=== PATIENT | female | born 1965 | race Caucasian/White ===

== ENCOUNTER 2017-06-17 07:36 | Day surgery (SDC) | payer BC ==
[~2017-06-17 07:36] MED LIST: CEFAZOLIN 1 GM/D5W RTU 1 GM/50 ML RTUPB IV PRN
[2017-06-17] MEDS ORDERED: POLYMYXIN B SULFATE INJ 500000 UNIT VIAL ONE (09:01)
[2017-06-17] MEDS ORDERED: DIPHENHYDRAMINE HCL 50 MG/ML VIAL ONE (09:06)
[2017-06-17] MEDS ORDERED: FENTANYL CITRATE INJ/PF 100 MCG/2 ML AMPUL ONE (09:07)
[2017-06-17] MEDS ORDERED: MIDAZOLAM 2 MG/2 ML INJ ONE (09:07)
[2017-06-17] MEDS ORDERED: PROPOFOL INJ 200 MG/20 ML VIAL IV ONE (09:08)
[2017-06-17] MEDS: BACITRACIN INJ 50,000 UNIT VIAL ONE ×3 (09:23→09:53)
[2017-06-17] MEDS: LIDOCAINE 2% INJ (20 MG/ML) 20 ML MDV ONE ×2 (09:53)
[2017-06-17] MEDS: NORMAL SALINE INJ/PF 0.9% 10 ML SDV ONE ×2 (09:53)
[2017-06-17] MEDS: BUPIVACAINE HCL 0.5 % INJ/PF 30 ML SDV ONE ×2 (09:53)
[2017-06-17] MEDS ORDERED: BUPIVACAINE INJ/PF LIPOSOME/PF 266 MG/20 ML SDV ONE (10:50)
[2017-06-17] MEDS ORDERED: DEXAMETHASONE SOD PHOSPHATE INJ 4 MG/1 ML VIAL ONE (10:52)
--- NOTE | 2017-06-17 13:48 | SURGICARE OPERATIVE REPORT E ---
[facility] Operative Report NAME: CHITRA AGUIRRE AGE: 52Y DATE OF SURGERY: 06/17/2017 ROOM: PREOPERATIVE DIAGNOSIS: Hallux valgus of the right foot. POSTOPERATIVE DIAGNOSIS: Hallux valgus of the right foot. PROCEDURE: A modified Hernandez bunionectomy of the first metatarsophalangeal joint of the right foot. OPERATING SURGEON: SAVANAH PRIETO DPM DESCRIPTION OF PROCEDURE: On 06/17/2017, the patient was admitted to [facility] with complaints of painful right foot. The patient was taken to the operating room where following the induction of IV sedation and regional local anesthesia, the patient's right foot was prepped and draped in the usual sterile manner. The tourniquet was placed on the proximal ankle malleoli. Esmarch was applied. Tourniquet was inflated to the level of 250 mmHg for hemostasis. Esmarch was removed. Sterile draping was completed and the following procedure performed. Attention was directed to the dorsal aspect of the patient's first metatarsophalangeal joint where a 3 cm curvilinear incision was placed medial to the longus extensor tendon and it was deepened through subcutaneous tissue and superficial fascia. All bleeding vessels were clamped, ligated, and Bovied as necessary for hemostasis. Incision was further deepened via sharp and blunt dissection. All the capsules and periosteal structures were then sharply incised in a similar fashion for all skin incision, freed from the osseous attachments and retracted medially and laterally for preservation. The longus extensor tendon was likewise retracted laterally for preservation with the capsular structures. This brought into view the hypertrophied medial aspect of the first metatarsal head, which utilizing a sagittal power saw, was removed so that the area was flush with the metatarsal shaft. First metatarsal head and base of the proximal phalanx were examined for articular changes with none being noted with the exception of the sesamoid grooves on the plantar aspect of the first metatarsal head. The medial and lateral showed some erosive changes. The dorsal surface of the sesamoids were identified and cartilage appeared to be intact. At that time, with the oscillating power saw, dorsal portion of the first metatarsal head including a small portion of the articular cartilage was then removed. The area was then smoothed with power rasp and rounded, placed through a range of motion, which was noted to be excellent at the time on the table. At that time, a lateral release was performed. The hallux was in a somewhat valgus position. The area was flushed with copious amounts of sterile antibiotic solution. Inspected remaining soft tissues for osseous debris. It was felt at this time range of motion was excellent. Correction was very good and was going to be further checked following closure of the capsule. The capsule was then closed with simple interrupted suture of 3-0 Vicryl. It was felt that there was too much tension on the extensor hallucis longus tendon. At that time, Z-plasty lengthening was performed. This was coapted and maintained with a running locking suture of 3-0 FiberWire. The hallux was still noted to be somewhat in a valgus position. At that time, a medical capsulorrhaphy was then performed. It was coapted maintaining a [id number]-cjjj-xmdf fashion with 2-0 FiberWire. At that time, it was felt that the correction was adequate. Intraoperative x-rays were obtained. Correction looked excellent at this time. At that time, the longus extensor tendon was transposed in a more midline position. The tendon sheath was sutured to the medial capsule. The subcutaneous tissue and superficial fascia was then coapted and maintained with simple interrupted suture of 4-0 Vicryl, and skin incision was then coapted and maintained with running subcuticular suture of 5-0 Vicryl. Exparel was then injected, 10 mL, darnell surgical area prior to closure of the skin. Then, Steri-Strips were applied and 1 mL of dexamethasone was injected. Augustus's silk, 4 x 4's, Delta, Kerlix, and Coflex. The tourniquet was deflated. Capillary filling time was noted to be spontaneous in all digits. Patient appeared to tolerate the surgery and anesthesia well and left the OR in apparent good condition with all vital signs stable. DICTATING PHYSICIAN: SAVANAH PRIETO DPM [id number] PHY#: [id number] ID: [id number] JOB#: [id number] ACCT: [id number] cc:SAVANAH PRIETO DPM > [facility]
--- NOTE | 2017-06-17 15:28 | SURGICARE DISCHARGE SUMMARY E ---
[facility] Discharge Summary NAME: CHITRA AGUIRRE AGE: 52Y ADMITTED: 06/17/2017 DISCHARGED: 06/17/2017 DATE OF SURGERY: 06/17/2017 OPERATING SURGEON: Savanah Abernathy DPM PROCEDURE PERFORMED: Modified Hernandez bunionectomy of the right foot. HOSPITAL COURSE: On 06/17/2017, patient was admitted to [facility] with a complaint of a painful bunion on the right foot. Patient was taken to operating room. Above procedure was performed. Patient tolerated surgery and anesthesia well, was later discharged from [facility] with prescriptions for Demerol 50 mg, cephalexin, and Phenergan. Patient was given a followup appointment for 1 week, was given a postoperative surgical shoe and postoperative instructions to include rest, ice and elevation, and weightbearing only on the heel. DICTATING PHYSICIAN: SAVANAH ABERNATHY DPM [id number] [id number] PHY#: [id number] ID: [id number] JOB#: [id number] ACCT: [id number] cc:SAVANAH ABERNATHY DPM >
--- NOTE | 2017-06-17 15:33 | RADIOLOGY REPORT (SQ) ---
EXAM DESCRIPTION: NO CHG FLUORO; FOOT RIGHT 2 VIEWS COMPLETED DATE/TIME: 06/17/2017 3:18 pm REASON FOR STUDY: RT FOOT BUNIONECTOMY M20.11 HALLUX VALGUS (ACQUIRED), RIGHT FOOT COMPARISON: None. FLUOROSCOPY TIME: 7 seconds 3 images saved to PACS. TECHNIQUE: Intra-operative images acquired during surgical procedure to evaluate progress. NUMBER OF IMAGES: 3 LIMITATIONS: None. FINDINGS: Patient undergoing surgery to great toe, bunionectomy. Please correlate with operative no te. IMPRESSION: IMAGE(S) OBTAINED DURING PROCEDURE. COMMENT: Quality ID 145: Final reports for procedures using fluoroscopy that document radiation exp osure indices, or exposure time and number of fluorographic images (if radiation exposure indices are not available) Please consult full operative report of the attending physician for description of the procedure. TECHNICAL DOCUMENTATION: JOB ID: [id number] [employer]- All Rights Reserved
== END 2017-06-17 12:19 | disposition home or self-care (01) ==
LOC: SC 07:36
PROVIDERS: ATTEND Preventive Medicine Undersea and Hyperbaric Medicine
PROC: 0QBN0ZZ Excision of Right Metatarsal, Open Approach (ICD-10-PCS; principal; 2017-06-17 08:45)
DX: M20.11 Hallux valgus (acquired), right foot (principal)
CPT/HCPCS: 73620; 28296; J2250; J3490 ×5; J0690; J1100; J1200; J3010; J2704; C9290; 01480

== ENCOUNTER 2018-03-03 08:38 | Day surgery (SDC) | payer BC ==
[2018-03-03] MEDS ORDERED: POLYMYXIN B SULFATE INJ 500000 UNIT VIAL ONE (09:25)
[2018-03-03] MEDS ORDERED: BUPIVACAINE HCL 0.5 % INJ/PF 30 ML SDV ONE (09:25)
[2018-03-03] MEDS ORDERED: LIDOCAINE 2% INJ (20 MG/ML) 20 ML MDV ONE (09:25)
[2018-03-03] MEDS ORDERED: BACITRACIN INJ 50,000 UNIT VIAL ONE (09:26)
[2018-03-03] MEDS ORDERED: MIDAZOLAM 2 MG/2 ML INJ ONE (09:27)
[2018-03-03] MEDS ORDERED: ONDANSETRON HCL INJ/PF 4 MG/2 ML SDV ONE (09:27)
[2018-03-03] MEDS ORDERED: FENTANYL CITRATE INJ/PF 100 MCG/2 ML AMPUL ONE (09:27)
[2018-03-03] MEDS ORDERED: PROPOFOL INJ 200 MG/20 ML VIAL IV ONE (09:28)
[2018-03-03] MEDS ORDERED: NORMAL SALINE INJ/PF 0.9% 10 ML SDV ONE (09:48)
[2018-03-03] MEDS ORDERED: BUPIVACAINE INJ/PF LIPOSOME/PF 266 MG/20 ML SDV ONE (10:37)
--- NOTE | 2018-03-03 11:18 | RADIOLOGY REPORT (SQ) ---
EXAM DESCRIPTION: FOOT LEFT 2 VIEWS; NO CHG FLUORO COMPLETED DATE/TIME: 03/03/2018 11:06 am REASON FOR STUDY: LT FOOT BUNIONECTOMY M20.12 HALLUX VALGUS (ACQUIRED), LEFT FOOT COMPARISON: None. FLUOROSCOPY TIME: 0.03 seconds Spot images saved to PACS. TECHNIQUE: Intra-operative images acquired during surgical procedure to evaluate progress. NUMBER OF IMAGES: 1 LIMITATIONS: None. FINDINGS: Fluoroscopy was provided for intraoperative procedure. Please refer to the operative repo rt for further discussion IMPRESSION: IMAGE(S) OBTAINED DURING PROCEDURE. COMMENT: Quality ID 145: Final reports for procedures using fluoroscopy that document radiation exp osure indices, or exposure time and number of fluorographic images (if radiation exposure indices are not available) Please consult full operative report of the attending physician for description of the procedure. TECHNICAL DOCUMENTATION: JOB ID: [id number] [employer]- All Rights Reserved Reading location - IP/workstation name: [email or web address]
--- NOTE | 2018-03-03 11:18 | RADIOLOGY REPORT (SQ) ---
EXAM DESCRIPTION: FOOT LEFT 2 VIEWS; NO CHG FLUORO COMPLETED DATE/TIME: 03/03/2018 11:06 am REASON FOR STUDY: LT FOOT BUNIONECTOMY M20.12 HALLUX VALGUS (ACQUIRED), LEFT FOOT COMPARISON: None. FLUOROSCOPY TIME: 0.03 seconds Spot images saved to PACS. TECHNIQUE: Intra-operative images acquired during surgical procedure to evaluate progress. NUMBER OF IMAGES: 1 LIMITATIONS: None. FINDINGS: Fluoroscopy was provided for intraoperative procedure. Please refer to the operative repo rt for further discussion IMPRESSION: IMAGE(S) OBTAINED DURING PROCEDURE. COMMENT: Quality ID 145: Final reports for procedures using fluoroscopy that document radiation exp osure indices, or exposure time and number of fluorographic images (if radiation exposure indices are not available) Please consult full operative report of the attending physician for description of the procedure. TECHNICAL DOCUMENTATION: JOB ID: [id number] [employer]- All Rights Reserved Reading location - IP/workstation name: [email or web address]
--- NOTE | 2018-03-03 13:16 | SURGICARE OPERATIVE REPORT E ---
[facility] Operative Report NAME: CHITRA AGUIRRE AGE: 52Y DATE OF SURGERY: 03/03/2018 ROOM: PREOPERATIVE DIAGNOSIS: Painful Bunion in the left foot. POSTOPERATIVE DIAGNOSIS: Painful Bunion in the left foot. PROCEDURE PERFORMED: Modified Hernandez bunionectomy of the left foot. SURGEON: SAVANAH PRIETO DPM CARGO SUPERVISOR: KIRSTEN BERGMAN DPM DESCRIPTION OF PROCEDURE: On 03/03/2018, the patient was admitted to [facility] with complaint of a painful left foot. The patient was taken to the operating room where following induction of intravenous sedation and regional local anesthesia, the patient's left foot and leg were prepped and draped in the usual sterile manner. Tourniquet was placed on the proximal ankle malleoli. Esmarch was applied. Tourniquet was inflated to a level of 250 mmHg for hemostasis. Esmarch was removed. Sterile drape was completed and the following procedure was performed. Attention was directed to the dorsal aspect of the patient's first metatarsophalangeal joint where a 3 cm curvilinear incision was placed medial to the long extensor tendon that was deep in the subcutaneous tissue and superficial fascia. All bleeding vessels were clamped, ligated, and bovied as necessary for hemostasis. Incision was further deep and via sharp and blunt dissection. The long extensor tendon was retracted for preservation. Incision was made in the capsular and periosteal structures in a similar fashion as the skin incision and freed from their osseous attachments on the medial aspect, thus revealing hypertrophied medial aspect of the first metatarsal head, which was then osteotomized with a sagittal saw, removing approximately 3 mm wedge of bone. At that time, all sharp osseous edges were rasped smooth. Fluoroscopic studies were obtained throughout the procedure for verification of bone resection and alignment of the toe. At that time, the area was flushed with copious amounts of sterile antibiotic solution and inspected for remaining soft tissue or osseous debris with none being noted. The bone wax was applied to the medial aspect of the first metatarsal head. The capsular and periosteal structures were coapted and maintained with simple interrupted suture of 3-0 Vicryl. It was felt at this time that the extensor hallucis longus tendon was contracted excessivley. At that time, a Z-plasty extensor tendon lengthening was then performed. It was coapted and maintained with running, locking suture of 3-0 FiberWire. The long extensor tendon was transposed more midline position , the tendon sheath was sutured to the medial capsule with 3-0 Vicryl. The superficial tissue and superficial fascia were coapted and maintained with simple interrupted suture of 4-0 Vicryl. Skin incision was then coapted and maintained with running subcuticular suture of 5-0 Vicryl. Steri-Strips were applied. Exparel was injected prior to skin closure utilizing 18 mL. Sterile dressing consisting of Augustus silk, 4 x 4s, Delta, Kerlix, and Coban were applied to the patient's left foot. Tourniquet was rapidly deflated. Capillary refill time was noted to be instantaneous to all digits. The patient appeared to tolerate surgery and anesthesia well and was taken to recovery where further monitored by the Anesthesia Department. DICTATING PHYSICIAN: SAVANAH PRIETO DPM [id number] [id number] PHY#: [id number] ID: [id number] JOB#: [id number] ACCT: [id number] cc:SAVANAH PRIETO DPM > [facility]
--- NOTE | 2018-03-04 12:06 | SURGICARE DISCHARGE SUMMARY E ---
[facility] [place] Discharge Summary NAME: CHITRA AGUIRRE AGE: 52Y ADMITTED: 03/03/2018 DISCHARGED: POSTOPERATIVE DIAGNOSIS: Painful bunion left foot. PROCEDURE PERFORMED: Modified Hernandez bunionectomy left foot on 03/03/2018. The patient was admitted to [facility] [place] with complaint of painful left foot. The patient was taken to the operating room, where the above procedure was performed. The patient tolerated surgery and anesthesia well and was later discharged from [facility] [place] with prescriptions for Demerol 50 mg, Phenergan 25 mg, and cephalexin 500 mg. Given a postoperative surgical shoe, and a follow-up appointment for 5 days. DICTATING PHYSICIAN: SAVANAH PRIETO DPM 1217M [id number] PHY#: [id number] ID: [id number] JOB#: [id number] ACCT: [id number] cc:SAVANAH PRIETO DPM >
== END 2018-03-03 11:41 | disposition home or self-care (01) ==
LOC: SC 08:38
PROVIDERS: ATTEND Preventive Medicine Undersea and Hyperbaric Medicine
DX: M20.12 Hallux valgus (acquired), left foot (principal); Z88.8 Allergy status to other drugs, medicaments and biological substances; Z79.899 Other long term (current) drug therapy
CPT/HCPCS: 73620; 28292; J2250; J3490 ×5; J0690; J3010; J2405; J2704; C9290; 01480

== ENCOUNTER → 2019-04-21 | Outpatient (CLI) | payer BC ==
--- NOTE | 2019-04-21 13:58 | RADIOLOGY REPORT (SQ) ---
EXAM DESCRIPTION: NM MUGA REST COMPLETED DATE/TIME: 04/21/2019 11:59 am REASON FOR STUDY: BREAST CANCER, PLANNED CHEMO Z13.6 ENCOUNTER FOR SCREENING FOR CARDIOVASCULAR DIS ORDERS COMPARISON: None. RADIONUCLIDE AND DOSE: 27.3 mCi technetium 99m labeled red blood cells The route of agent administration: Intravenous TECHNIQUE: Following administration of the radionuclide, gated images of the heart are obtained in t hree projections. Left ventricular functional analysis performed. LIMITATIONS: None. FINDINGS: LEFT VENTRICULAR FUNCTION: EJECTION FRACTION: 81%. END-DIASTOLIC VOLUME: 80 mL. END-SYSTOLIC VOLUME: 9 mL. WALL MOTION: No focal wall motion abnormalities. OTHER: No other significant finding. IMPRESSION: NORMAL CARDIAC MUGA STUDY. NORMAL LEFT VENTRICULAR FUNCTION WITH VALUES ABOVE. TECHNICAL DOCUMENTATION: JOB ID: [id number]- All Rights Reserved Reading location - IP/workstation name: [email or web address]
== END ==
LOC: RAD 10:45
PROVIDERS: ATTEND Internal Medicine
DX: Z13.6 Encounter for screening for cardiovascular disorders (principal); Z08 Encounter for follow-up examination after completed treatment for malignant neoplasm; C50.211 Malignant neoplasm of upper-inner quadrant of right female breast
CPT/HCPCS: 78472; A9560; Q9969

== ENCOUNTER → 2019-04-25 | Outpatient (CLI) | payer BC ==
--- NOTE | 2019-04-28 12:26 | RADIOLOGY REPORT (SQ) ---
EXAM DESCRIPTION: MRI BREAST UNILATERAL W/WO COMPLETED DATE/TIME: 04/25/2019 9:08 am REASON FOR STUDY: RIGHT BREAST CA (C50.211) C50.211 MALIG NEOPLM OF UPPER-INNER QUADRANT OF RIGHT F EMALE COMPARISON: None. PATHOLOGIC CORRELATION: Mammograms 04/04/2019. CONTRAST TYPE AND DOSE: 20 mL Dotarem. RENAL FUNCTION: GFR > 60. TECHNIQUE: MR imaging performed with a dedicated breast coil. Pre contrast T1 and T2 weighted images . Pre contrast and post contrast enhanced T1 weighted images with fat saturation. Subtraction images, 3D thick and thin MIPS, and kinetic analysis performed on an independent workstat ion. ([facility] workstation) Magnet strength: 1.5 T LIMITATIONS: None. FINDINGS: BREAST DENSITY: b. There are scattered areas of fibroglandular density. BACKGROUND PARENCHYMAL ENHANCEMENT:Mild. RIGHT BREAST: Enhancement associated with two recently biopsied lesions at 7 o'clock just anterior to the implant, and 9 o'clock anterior 3rd. No other abnormal enhancement. CHEST WALL: Normal tissue planes. No abnormal internal mammary nodes. AXILLA: Normal axillary and retro-pectoral nodes. LEFT BREAST:No enhancing or suspicious masses. No clumped, regional/segmental ductal enhancement. CHEST WALL: Normal tissue planes. No abnormal internal mammary nodes. AXILLA: Normal axillary and retro-pectoral nodes. OTHER:No identified liver, bone, or lung lesions. No other significant incidental findings. IMPRESSION: Known malignancies at 2 sites in the right breast. No evidence of contralateral malignancy. BIRAD: RIGHT BREAST: 6 Known biopsy-proven malignancy. Appropriate action should be taken. LEFT BREAST: 2 Benign findings. RECOMMENDATION: RECOMMENDED FOLLOW-UP: Per Dr. Guillen. TECHNICAL DOCUMENTATION: JOB ID: [id number] [employer]- All Rights Reserved Reading location - IP/workstation name: [facility]-
== END ==
LOC: RAD 07:36
PROVIDERS: ATTEND Internal Medicine
DX: C50.211 Malignant neoplasm of upper-inner quadrant of right female breast (principal)
CPT/HCPCS: 77048; A9576; 82565

== ENCOUNTER 2019-04-28 06:32 | Day surgery (SDC) | payer BC ==
[2019-04-28] MEDS ORDERED: LIDOCAINE 1% INJ-PF (10 MG/ML) 30 ML SDV ONE (07:36)
[2019-04-28] MEDS ORDERED: BACITRACIN INJ 50,000 UNIT VIAL ONE (07:36)
[2019-04-28] MEDS ORDERED: MIDAZOLAM 2 MG/2 ML INJ ONE ×2 (07:40→08:48)
[2019-04-28] MEDS ORDERED: FENTANYL CITRATE INJ/PF 100 MCG/2 ML AMPUL ONE ×2 (07:40→08:48)
[2019-04-28] MEDS ORDERED: CEFAZOLIN INJ 1 GM VIAL ONE (08:27)
--- NOTE | 2019-04-28 09:57 | Discharge Summary ---
Discharge Summary (SDC) - Discharge Final Diagnosis: Triple negative, overlapping right breast carcinoma Date of Surgery: 04/28/19 Discharge Date: 04/28/19 Condition: Good Forms: ASU Anesthesia D/C Instruction, Discharge POC-Surgical Service Treatment or Instructions: Remove dressings in 48 hours; allow Steri-Strips to fall off on own. To take Tylenol or Motrin as needed pain. Follow-up with Dr. Wilkinson is also surgical clinic in 1 to 2 weeks. Referrals: DEYANIRA MAST MD [ACTIVE STAFF] - 05/10/19 10:45 am Discharge Diet: As Tolerated Discharge Activity: Activity As Tolerated Home Care Assistance: None Needed Report the Following to Your Physician Immediately: Shortness of Breath, Nausea, Vomiting, Fever over 101 Degrees, Unusual Bleeding
--- NOTE | 2019-04-28 10:03 | Operative Report ---
Operative Report DATE OF SURGERY: 04/28/19 PREOPERATIVE DIAGNOSIS: Overlapping, triple negative right breast carcinoma POSTOPERATIVE DIAGNOSIS: Same with right axillary adenopathy suspicious for metastatic involvement OPERATION: 1. Focused ultrasound of the left neck. 2. Insertion of left subclavian Mfdqqg-h-Bjlu catheter. 3. Interpretation of intraoperative fluoroscopy. 4. Focused right axillary ultrasonography SURGEON: DEYANIRA MAST ANESTHESIA: Moderate Sedation TISSUE REMOVED OR ALTERED: None COMPLICATIONS: None ESTIMATED BLOOD LOSS: Scant INTRAOPERATIVE FINDINGS: See below PROCEDURE: The patient was seen in the preop area, then taken to the cardiac catheterization lab where she is placed supine position. Left neck and chest wall prepped and draped in sterile fashion. Surgical plan surgical timeout were conducted. Focused ultrasonography of the left neck confirmed patent, compressible left internal jugular vein. Skin was anesthetized with 1% plain lidocaine. Marlon was made the skin with 11 blade, and a micro needle and wire threaded through the left internal jugular vein, confirmed by intraoperative fluoroscopy. A suitable site for placement of the port was chosen in the left subclavian position. Of note, patient has breast implants, so the pocket was developed in a superficial plane. The skin was anesthetized with 1% plain lidocaine, a 3 cm incision was made with 15 blade, and electrocautery and blunt dissection were used to develop a port pocket. The catheter was then trimmed to the appropriate configuration, tunneled between the 2 incisions, and trimmed to the appropriate length. The catheter was secured to the port with the plastic ring. The port was tucked into the pocket, and the micro wire switched over to a conventional 0.030 guidewire using fluoroscopy. The 8-1/2 Malaysian dilator and introducer sheath were threaded over the conventional guidewire, wire and dilator removed all under fluoroscopy, and the catheter free and threaded into the left internal jugular vein. The strip away sheath was removed leaving the cath in good p osition with no evidence of kinking at the neck. The tip of the catheter was in the SVC-right atrial junction. Images were retained for the record. The port was aspirated with a John needle, and flushed satisfactorily. All wounds closed with 3-0 Vicryl, benzoin Steri-Strips and bolster dressings. Focused ultrasonography of the right axilla performed. There is significant for multiple enlarged lymph nodes, upwards of 1.5 cm, thickened irregular cortex, with preserved hilum. Photos taken for the record. The findings were suspicious but not diagnostic for metastatic involvement. The patient tolerated procedure well. Discharge instructions provided.
[2019-04-28 10:43] VITALS: BP 120/74
--- NOTE | 2019-04-28 14:55 | RADIOLOGY REPORT (SQ) ---
EXAM DESCRIPTION: PORTACATH INSERTION COMPLETED DATE/TIME: 04/28/2019 9:09 am REASON FOR STUDY: RT BREAST CA C50.211 MALIG NEOPLM OF UPPER-INNER QUADRANT OF RIGHT FEMALE COMPARISON: None. FLUOROSCOPY TIME: 1.0 minute 20 images saved to PACS. TECHNIQUE: Intra-operative images acquired during surgical procedure to evaluate progress. NUMBER OF IMAGES: Cine fluoroscopic images. LIMITATIONS: None. FINDINGS: Left-sided port tip overlies SVC. IMPRESSION: IMAGE(S) OBTAINED DURING PROCEDURE. COMMENT: Quality ID [id number]: Final reports for procedures using fluoroscopy that document radiation exp osure indices, or exposure time and number of fluorographic images (if radiation exposure indices are not available) Please consult full operative report of the attending physician for description of the procedure. TECHNICAL DOCUMENTATION: JOB ID: [id number] [employer]- All Rights Reserved Reading location - IP/workstation name: [email or web address]
== END 2019-04-28 10:35 | disposition home or self-care (01) ==
LOC: CCL 06:32
PROVIDERS: ATTEND Surgery
DX: C50.211 Malignant neoplasm of upper-inner quadrant of right female breast (principal); Z98.82 Breast implant status; Z80.3 Family history of malignant neoplasm of breast; Z01.818 Encounter for other preprocedural examination
CPT/HCPCS: 36561; 76937; 77001; C1752; C1788; J2250; J3490 ×2; J0690; J3010; J1644; Q9967

== ENCOUNTER → 2019-04-28 | Outpatient (CLI) | payer BC ==
[~2019-04-28] MED LIST changes: +ACETAMINOPHEN 325 MG TABLET PO PRN; -CEFAZOLIN 1 GM/D5W RTU 1 GM/50 ML RTUPB IV PRN; +CEFAZOLIN SODIUM 1 GM in DEXTROSE 5%-WATER 50 ML IV PRN; +RINGERS SOLUTION,LACTATED 1,000 ML IV PRN
== END ==
LOC: RAD 08:00
PROVIDERS: ATTEND Internal Medicine
DX: Z53.9 Procedure and treatment not carried out, unspecified reason (principal)
CPT/HCPCS: J0690; J7060

== ENCOUNTER → 2019-05-03 | Outpatient (CLI) | payer BC ==
--- NOTE | 2019-05-03 09:35 | RADIOLOGY REPORT (SQ) ---
EXAM DESCRIPTION: CT ABD/PELVIS WITH IV ONLY; CT CHEST WITH COMPLETED DATE/TIME: 05/03/2019 8:40 am REASON FOR STUDY: BREAST CA (C50.211) C50.211 MALIG NEOPLM OF UPPER-INNER QUADRANT OF RIGHT FEMALE COMPARISON: None. CONTRAST TYPE AND DOSE: contrast/concentration: Isovue 350.00 mg/ml; Total Contrast Delivered: 70.0 ml; Total Saline Delivered: 65.0 ml RENAL FUNCTION: GFR > 60. TECHNIQUE: CT scan of the chest performed using helical scanning technique with dynamic intravenous contrast injection. Images reviewed with lung, soft tissue and bone windows. Reconstructed coronal a nd sagittal MPR images reviewed. All images stored on PACS. CT scan of the abdomen and pelvis performed with intravenous and without oral contrastusing helical s nathaniel technique with dynamic intravenous contrast injection. Images reviewed with lung, soft tissu e and bone windows. Reconstructed coronal and sagittal MPR images reviewed. Delayed images for eval uation of the urinary system also acquired and evaluated. All images stored on PACS. All CT scanners at this facility use dose modulation, iterative reconstruction, and/or weight based d osing when appropriate to reduce radiation dose to as low as reasonably achievable (ALARA). [facility]: Dose Right [facility]: CareDose [facility]: Dose Right [facility]: Teradose 4D [facility]: Smart Purpose Global RADIATION DOSE: CT Rad equipment meets quality standard of care and radiation dose reduction techniq ues were employed. CTDIvol: 4.4 - 4.6 mGy. DLP: 619 mGy-cm. . LIMITATIONS: None. FINDINGS: CHEST: LUNGS AND PLEURA: No opacities, nodules, masses. No pneumothorax. No effusions. HILAR AND MEDIASTINAL STRUCTURES: No identified masses or abnormal nodes. HEART AND VASCULAR STRUCTURES: No aneurysm or dissection. No central pulmonary emboli. No pericardi al effusion. HARDWARE: None. THYROID AND OTHER SOFT TISSUES: No masses. There are enlarged lymph nodes in the right axilla measur ing up to 1.5 cm. BONES: No significant finding. OTHER: Bilateral breast implants. Left chest port catheter. ABDOMEN AND PELVIS: LIVER: Normal size. No masses. No dilated ducts. SPLEEN: Normal size. No focal lesions. PANCREAS: No masses. No significant calcifications. No adjacent inflammation or peripancreatic fluid collections. Pancreatic duct not dilated. GALLBLADDER: No identified stones by CT criteria. No inflammatory changes to suggest cholecystitis. ADRENAL GLANDS: No significant masses or asymmetry. RIGHT KIDNEY AND URETER: No solid masses. No significant calcification. No hydronephrosis or hydroure ter. LEFT KIDNEY AND URETER: No solid masses. No significant calcification. No hydronephrosis or hydrouret er. AORTA AND VESSELS: No aneurysm. No dissection. Renal arteries, SMA, celiac without stenosis. RETROPERITONEUM: No retroperitoneal adenopathy, hemorrhage or masses. BOWEL AND PERITONEAL CAVITY: No masses or inflammatory changes. No free fluid or peritoneal masses. APPENDIX: Normal. ABDOMINAL WALL: No masses. No hernias. PELVIS: No mass or free fluid. Normal bladder. BONES: No significant or acute findings. OTHER: No other significant finding. IMPRESSION: 1. Enlarged lymph nodes in the right axilla. 2. No other evidence of metastatic disease in the chest, abdomen, or pelvis. TECHNICAL DOCUMENTATION: JOB ID: [id number] Quality ID # [id number]: Final reports with documentation of one or more dose reduction techniques (e.g., Au tomated exposure control, adjustment of the mA and/or kV according to patient size, use of iterative reconstruction technique) 2010 [employer]- All Rights Reserved Reading location - IP/workstation name: [email or web address]
--- NOTE | 2019-05-03 13:10 | RADIOLOGY REPORT (SQ) ---
EXAM DESCRIPTION: NM WHOLE BODY BONE SCAN COMPLETED DATE/TIME: 05/03/2019 12:57 pm REASON FOR STUDY: BREAST CA (C50.211) C50.211 MALIG NEOPLM OF UPPER-INNER QUADRANT OF RIGHT FEMALE COMPARISON: CT chest abdomen pelvis 05/03/2019 RADIONUCLIDE AND DOSE: 21.6 millicuries Tc99m MDP. The route of agent administration: Intravenous. ADDITIONAL DRUGS AND DOSES: None. TECHNIQUE: Routine delayed images at 3 hours post radionuclide injection acquired of the bony skelet on including anterior and posterior whole-body projections and additional focused images as needed. LIMITATIONS: None. FINDINGS: BONES: No scintigraphic evidence of bony metastatic disease over the skeleton. There is minimal increased uptake in the right lower cervical facet joint, likely C6-7, and mild incr eased uptake at bilateral 1st metatarsophalangeal joints from osteoarthritis. KIDNEYS: Symmetric excretion without obstruction. OTHER: No other significant finding. IMPRESSION: No scintigraphic evidence of bony metastatic disease COMMENT: Quality measure 147: Current bone scan is compared with any available plain radiographs, p rior bone scans, and CT/MRI. TECHNICAL DOCUMENTATION: JOB ID: [id number] [employer]- All Rights Reserved Reading location - IP/workstation name: [email or web address]
== END ==
LOC: RAD 08:05
PROVIDERS: ATTEND Internal Medicine
DX: C50.211 Malignant neoplasm of upper-inner quadrant of right female breast (principal); R59.0 Localized enlarged lymph nodes
CPT/HCPCS: 78306; 71260; 74177; A9561; Q9969

== ENCOUNTER 2019-10-27 09:58 | Day surgery (SDC) | payer BC ==
[2019-10-21 10:41] LABS: HEMATOCRIT 36.4 % (36.0-47.0); HEMOGLOBIN 12.5 g/dL (12.0-15.5); MEAN CORPUSCULAR HEMOGLOBIN 31.8 pg (27.0-33.4); MEAN CORPUSCULAR HGB CONC 34.3 g/dL (32.0-36.0); MEAN CORPUSCULAR VOLUME 93 fl (80-97); PLATELET COUNT 233 10^3/uL (150-450); RED BLOOD COUNT 3.93 10^6/uL (3.72-5.28); RED CELL DISTRIBUTION WIDTH 14.7 % (11.5-14.0); WHITE BLOOD COUNT 2.8 10^3/uL (4.0-10.5)
[~2019-10-27 09:58] MED LIST changes: -ACETAMINOPHEN 325 MG TABLET PO PRN; +CEFAZOLIN 1 GM/D5W RTU 1 GM/50 ML RTUPB IV ONE; +CEFAZOLIN 1 GM/D5W RTU 1 GM/50 ML RTUPB IV PRN; -CEFAZOLIN SODIUM 1 GM in DEXTROSE 5%-WATER 50 ML IV PRN; +LACTATED RINGERS 1000 ML IV PRN; +LIDOCAINE 0.5% INJ-PF (5 MG/ML) 50 ML SDV SUBCUT PRN; +LIDOCAINE 4% CREAM 5 GM TUBE ONE; -RINGERS SOLUTION,LACTATED 1,000 ML IV PRN
[2019-10-27] MEDS ORDERED: ONDANSETRON HCL INJ/PF 4 MG/2 ML SDV ONE (10:43)
[2019-10-27] MEDS ORDERED: KETOROLAC TROMETHAMINE 60 MG/2 ML SDV ONE (10:43)
[2019-10-27] MEDS ORDERED: ROCURONIUM BROMIDE INJ 50 MG/5 ML VIAL IV ONE (10:43)
[2019-10-27] MEDS ORDERED: DEXAMETHASONE SOD PHOSPHATE INJ 4 MG/1 ML VIAL ONE (10:43)
[2019-10-27] MEDS ORDERED: FENTANYL CITRATE INJ/PF 100 MCG/2 ML AMPUL ONE (11:49)
[2019-10-27] MEDS ORDERED: PROPOFOL INJ 200 MG/20 ML VIAL IV ONE (11:49)
[2019-10-27] MEDS ORDERED: MIDAZOLAM 2 MG/2 ML INJ ONE (11:49)
[2019-10-27] MEDS ORDERED: HYDROMORPHONE HCL INJ/PF 2 MG/ML AMPULE ONE (11:50)
[2019-10-27] MEDS ORDERED: METHYLENE BLUE 50 MG/10 ML AMPULE ONE (13:19)
[2019-10-27] MEDS ORDERED: MICROFIBRILLAR COLLAGEN 1 GM PACK ONE (13:19)
[2019-10-27] MEDS ORDERED: LIDOCAINE 1%/EPINEPHRINE INJ 20 ML VIAL ONE (13:20)
[2019-10-27] MEDS ORDERED: ONDANSETRON HCL INJ/PF 4 MG/2 ML SDV IV PRN (14:01)
[2019-10-27] MEDS ORDERED: MORPHINE SULFATE 10 MG/ML INJ IV PRN (14:01)
[2019-10-27] MEDS ORDERED: PROMETHAZINE HCL INJ 25 MG/1 ML VIAL IV PRN (14:01)
[2019-10-27] MEDS ORDERED: DIPHENHYDRAMINE HCL 50 MG/ML VIAL IV PRN (14:01)
[2019-10-27] MEDS ORDERED: MEPERIDINE HCL/PF INJ 25 MG/1 ML DISP.SYRIN IV PRN (14:01)
[2019-10-27] MEDS ORDERED: FENTANYL CITRATE INJ/PF 100 MCG/2 ML AMPUL IV PRN ×3 (14:01)
[2019-10-27] MEDS ORDERED: DEXTROSE 5%-LACTATED RINGERS 1,000 ML IV PRN (16:15)
--- NOTE | 2019-10-27 16:20 | RADIOLOGY REPORT (SQ) ---
EXAM DESCRIPTION: NM INJECT LYMPH GLAND IMAGING IMAGES COMPLETED DATE/TIME: 10/27/2019 12:23 pm REASON FOR STUDY: MALIGNANT NEOPLASM OF UNSPECIFIED SITE OF RIGHT FEMALE BREAST C50.911 MALIGNANT N EOPLASM OF UNSP SITE OF RIGHT FEMALE KIRSTIE Z80.3 FAMILY HISTORY OF MALIGNANT NEOPLASM OF BREAST COMPARISON: None. RADIONUCLIDE AND DOSE: 567 microcuries TC-99m tilmanocept - [employer]. The route of agent administration: Subcutaneous in the skin. TECHNIQUE: The skin of the right breast was prepped in sterile fashion. The radiopharmaceutical was administered in 4 equal doses into the periareolar skin spanning the 6 to 9 o'clock positions. . LIMITATIONS: None. FINDINGS: Images demonstrate activity at the injection site. IMPRESSION: ADMINISTRATION OF RADIOPHARMACEUTICAL FOR SENTINEL LYMPH NODE EVALUATION. TECHNICAL DOCUMENTATION: JOB ID: [id number] 2010 [employer]- All Rights Reserved Reading location - IP/workstation name: [email or web address]
--- NOTE | 2019-10-27 16:25 | Operative Report ---
Operative Report DATE OF SURGERY: 10/27/19 PREOPERATIVE DIAGNOSIS: 1. Multicentric right breast cancers. 2. Status post quadruple neoadjuvant chemotherapy. 3. History of bilateral subpectoral breast implants POSTOPERATIVE DIAGNOSIS: Same OPERATION: 1. [place] lymph node biopsy x2 right axilla using dual mapping technique. 2. Right mastectomy, drain placement. 3. Left mastectomy, drain placement SURGEON: DEYANIRA MCKAY MARINE ENGINE MECHANIC: BALTA FIGUEROA ANESTHESIA: GA TISSUE REMOVED OR ALTERED: 2 sentinel lymph nodes; right breast; left breast; COMPLICATIONS: None ESTIMATED BLOOD LOSS: 15 cc INTRAOPERATIVE FINDINGS: See below PROCEDURE: Patient was seen in the preop holding area after undergoing lymphoscintigraphy of the right breast. Patient had activity with successful mapping the right axilla using the bedside the appropriate for scanning. The patient was then taken to the main operating room and general anesthesia was induced. The right breast was now injected with 1.5 cc of full-strength methylene blue 10 o'clock position right breast areolar border. We now marked the breast for bilateral mastectomies. Both breasts, and right axilla prepped and draped in sterile fashion Surgical plan and surgical timeout were conducted. The right breast was approached first. Subcutaneous tissue anesthetized with 20 cc of percent plain lidocaine. The right breast was incised with a #10 blade along the elliptical conroy. Superior and inferior skin flaps were elevated. Of note the superior flap was thin in areas. We took the level of the dissection down to the chest wall superiorly, and the para sternal tissue medially. Inferiorly we took the level of the dissection down to the inferior portion of the capsule surrounding the implant. Of note the 7 o'clock position tumor was palpated, so in order to ensure a negative anterior margin, a triangle of skin from the inferior skin flap was resected and left with the mastectomy specimen. We worked in a circumferential fashion, taking the breast off of the pectoralis muscle where it was still viable. As expected, the muscle was heavily attenuated, and only occupied about 50% of its usual surface area. Laterally and inferiorly the muscle was essentially absent, so we stayed outside of the implant capsule. There were no violations to the capsule. The specimen was taken off of the implant and pectoralis muscle, and labeled with a long suture in the lateral position, short suture in the superior position. The small triangle of skin was secured to the principal ellipse of skin to show its presurgical anatomic alignment. Specimen was sent to pathology for permanent analysis. We now approached the right axilla. I used a separate incision for the sentinel lymph node biopsy because of the history of neoadjuvant chemotherapy, and strong fibrotic reaction of the tissue towards the axilla. The skin was anesthetized with a 1% plain lidocaine. A 2 cm incision was made in the low axilla, and 2 sentinel lymph nodes were harvested. Again, the subcutaneous tissue and axillary fat was very fibrotic. The first sentinel lymph node had an in vivo count of 1931 and an ex vivo count of 6286. It was hot and blue and consisted of a level 1 node. The second lymph node also very fibrotic was not blue. It was hot with an ex vivo count of 1866. Background counts were negligible. Hemostasis was excellent. We now turned our attention to the left breast. The skin was divided with a #10 blade. Superior and inferior skin flaps were raised. Again the superior flap was quite thin in areas. The breast was taken off of the chest wall in a comparable fashion to the right side, involving the pectoralis muscle over the medial half of the posterior surface of the breast, and directly over the implant capsule over the lateral half of the posterior dissection. The breast able with a long suture lateral position, short suture in the superior position. Bilateral #15 Moses drains were placed laterally in the chest wall, and tucked inferiorly medially and superiorly in a C-shaped fashion. The flaps were reinspected and appeared reasonably viable, with some dusky areas. Sponge and needle counts are correct. I felt the operation was complete. Both breast implants were reinspected and there was felt to be no violation of either capsule. Skin flaps were closed with running 2-0 Vicryl suture. The the cut in the inferior flap on the right was also closed with interrupted 3-0 Vicryl suture. At the conclusion of the operation with the drains under bulb suction, there was some duskiness to the superior flaps. They were not frankly ischemic, however. Closed the skin with skin glue. Patient was awakened from anesthesia and taken to the recovery room in stable condition. The physician assistant store manager trainee, Ms. Perez, provided assistance during this case by: Assisting retracting tissue, instillation of local anesthesia and closure of skin incisions.
[2019-10-27] MEDS ORDERED: DIPHENHYDRAMINE HCL 25 MG CAPSULE ONE (18:15)
[2019-10-27] MEDS ORDERED: ACETAMINOPHEN 1,000 MG/100 ML RTUPB IV ONE (18:26)
[2019-10-27] MEDS: ACETAMINOPHEN 1,000 MG/100 ML RTUPB IV SCH (18:37)
[2019-10-27] MEDS ORDERED: DIPHENHYDRAMINE HCL 25 MG CAPSULE PO ONE (19:00)
[2019-10-27] MEDS ORDERED: ACETAMINOPHEN INJ/PF 1000 MG/100 ML SDV IV SCH (22:00)
[2019-10-27] MEDS ORDERED: KETOROLAC TROMETHAMINE INJ/PF 30 MG/1 ML SDV IV PRN (22:15)
[2019-10-27] MEDS: CEFAZOLIN 1 GM/D5W RTU 1 GM/50 ML RTUPB IV SCH (22:40)
[2019-10-28] MEDS ORDERED: ACETAMINOPHEN 1,000 MG/100 ML RTUPB IV ONE ×2 (00:08→06:35)
[2019-10-28] MEDS: ACETAMINOPHEN 1,000 MG/100 ML RTUPB IV SCH ×2 (00:18→06:55)
[2019-10-28] MEDS ORDERED: DIPHENHYDRAMINE HCL 25 MG CAPSULE PO ONE (02:00)
[2019-10-28] MEDS: CEFAZOLIN 1 GM/D5W RTU 1 GM/50 ML RTUPB IV SCH (05:47)
--- NOTE | 2019-10-28 07:39 | PDOC DISCHARGE SUMMARY ---
General - Admit/Disc Date/PCP Admission Date/Primary Care Provider: DMITRY PORTILLO MD Discharge Date: 10/28/19 - Discharge Diagnosis Final Diagnosis: Breast cancer - Assessment Summary: This is a 54-year-old female who underwent bilateral mastectomies for breast cancer. Surgery was done by Dr. Guillen on 10/27/2019. The patient tolerated surgery very well. On postoperative day 1, she was ambulating, tolerating a diet, feeling well, and had reached maximal hospital benefit. At this time she is medically fit for discharge. - Additional Information Resuscitation Status: Full Code Discharge Diet: As Tolerated Discharge Activity: Balance Activity w/Rest Referrals: DMITRY PORTILLO MD [Primary Care Provider] - Home Medications: No Home Medications 02/24/18 Additional Information: Discharge home. Diet as tolerated. Activity: Nonstrenuous. Follow-up with Dr. Guillen in 1 week. Keflex and Toradol prescriptions left on the chart. Okay to shower. Empty MARY drains and keep track of output every day. History of Present Illiness History of Present Illness: CHITRA AGUIRRE is a 54 year old female Physical Exam Vital Signs: Temp Pulse Resp BP Pulse Ox 97.7 F 87 18 102/45 L 98 10/28/19 05:53 10/28/19 05:53 10/28/19 05:53 10/28/19 05:53 10/28/19 05:53 Intake & Output 10/27/19 10/28/19 10/29/19 06:59 06:59 06:59 Intake Total 2300 Output Total 870 Balance 1430 Weight 60 kg Results Laboratory Results: WBC 2.8 10^3/uL (4.0-10.5) L 10/21/19 09:42 RBC 3.93 10^6/uL (3.72-5.28) 10/21/19 09:42 Hgb 12.5 g/dL (12.0-15.5) 10/21/19 09:42 Hct 36.4 % (36.0-47.0) 10/21/19 09:42 MCV 93 fl (80-97) 10/21/19 09:42 MCH 31.8 pg (27.0-33.4) 10/21/19 09:42 MCHC 34.3 g/dL (32.0-36.0) 10/21/19 09:42 RDW 14.7 % (11.5-14.0) H 10/21/19 09:42 Plt Count 233 10^3/uL (150-450) 10/21/19 09:42 COVID-19 Source NASOPHARYNGEAL 10/21/19 09:40 COVID-19 (TANIA) NOT DETECTED 10/21/19 09:40 Impressions: Injection Procedure Nuc Med 10/27/19 10:44 IMPRESSION: ADMINISTRATION OF RADIOPHARMACEUTICAL FOR SENTINEL LYMPH NODE EVALUATION.
[2019-10-28 08:22] VITALS: BP 116/63
== END 2019-10-28 08:39 | disposition home or self-care (01) ==
LOC: OROUT 09:58 → 2N 16:15 → OROUT 10-28 08:39
PROVIDERS: ATTEND Surgery
DX: C50.811 Malignant neoplasm of overlapping sites of right female breast (principal); C77.3 Secondary and unspecified malignant neoplasm of axilla and upper limb lymph nodes; N60.42 Mammary duct ectasia of left breast; N60.12 Diffuse cystic mastopathy of left breast; Z03.818 Encounter for observation for suspected exposure to other biological agents ruled out; Z80.3 Family history of malignant neoplasm of breast; Z79.899 Other long term (current) drug therapy
CPT/HCPCS: 36415; 85027; 87635; 88342 ×2; 88307 ×2; 88309 ×2; 38792; 94799; 01610; 19307; J2250; J0690 ×2; J3490 ×3; J1100; J1885; J1170; J2405; J2704; J0131 ×2; Q9968; C9803; 1610; J3010

== ENCOUNTER → 2019-11-01 | Outpatient (CLI) | payer BC ==
--- NOTE | 2019-11-01 14:44 | WOMENS IMAGING REPORT ---
EXAM DESCRIPTION: BREAST SPECIMEN IMAGES COMPLETED DATE/TIME: 11/01/2019 12:43 pm REASON FOR STUDY: SPECIMEN C50.911 MALIGNANT NEOPLASM OF UNSP SITE OF RIGHT FEMALE BREAST C50.911 M ALIGNANT NEOPLASM OF UNSP SITE OF RIGHT FEMALE KIRSTIE COMPARISON: None. TECHNIQUE: Specimen radiograph from breast procedure performed in the operating room. LIMITATIONS: None. FINDINGS: Specimen radiograph with pathologic blocks are present. The biopsy clip is in the 4th blo ck in the right hand column IMPRESSION: Specimen radiograph. TECHNICAL DOCUMENTATION: JOB ID: [id number] Reading location - IP/workstation name: [email or web address]
--- NOTE | 2019-11-01 14:54 | WOMENS IMAGING REPORT ---
EXAM DESCRIPTION: BREAST SPECIMEN IMAGES COMPLETED DATE/TIME: 11/01/2019 2:33 pm REASON FOR STUDY: C50.911 MALIGNANT NEOPLASM OF UNSPECIFIED SITE OF RIGHT BREAST C50.911 MALIGNANT NEOPLASM OF UNSP SITE OF RIGHT FEMALE KIRSTIE COMPARISON: 11/01/2019 specimen radiograph of pathology cassettes TECHNIQUE: Specimen radiograph from breast procedure performed in the operating room. LIMITATIONS: None. FINDINGS: Lumpectomy specimen, biopsy clip and calcifications are marked with a [place] on the specim en radiograph Please see procedure note for details and final pathology. IMPRESSION: Specimen radiograph. TECHNICAL DOCUMENTATION: JOB ID: [id number] Reading location - IP/workstation name: [email or web address]
== END ==
LOC: WI 11:28
PROVIDERS: ATTEND Surgery
DX: C50.911 Malignant neoplasm of unspecified site of right female breast (principal)
CPT/HCPCS: 76098

== ENCOUNTER 2019-11-30 06:47 | Observation (INO) | payer BC ==
[~2019-11-30 06:47] MED LIST changes: -LACTATED RINGERS 1000 ML IV PRN; -LIDOCAINE 0.5% INJ-PF (5 MG/ML) 50 ML SDV SUBCUT PRN; -LIDOCAINE 4% CREAM 5 GM TUBE ONE
[2019-11-30 07:47] LABS: ABSOLUTE EOSINOPHILS # (AUTO) 0.1 10^3/uL (0.0-0.6); ABSOLUTE LYMPHOCYTES (AUTO) 1.5 10^3/uL (0.5-4.7); ABSOLUTE MONOCYTES (AUTO) 0.3 10^3/uL (0.1-1.4); ABSOLUTE NEUT (AUTO) 0.9 10^3/uL (1.7-8.2); BASOPHILS % (AUTO) 1.4 % (0-2); EOSINOPHILS % (AUTO) 4.3 % (0-6); HEMATOCRIT 36.5 % (36.0-47.0); HEMOGLOBIN 12.5 g/dL (12.0-15.5); LYMPHOCYTES % (AUTO) 53.1 % (13-45); MEAN CORPUSCULAR HEMOGLOBIN 31.1 pg (27.0-33.4); MEAN CORPUSCULAR HGB CONC 34.2 g/dL (32.0-36.0); MEAN CORPUSCULAR VOLUME 91 fl (80-97); MONOCYTES % (AUTO) 9.7 % (3-13); PLATELET COUNT 185 10^3/uL (150-450); RED BLOOD COUNT 4.01 10^6/uL (3.72-5.28); RED CELL DISTRIBUTION WIDTH 13.8 % (11.5-14.0); SEGMENTED NEUTROPHILS % (AUTO) 31.5 % (42-78); TOTAL CELLS COUNTED % (AUTO) 100 %; WHITE BLOOD COUNT 2.8 10^3/uL (4.0-10.5)
[2019-11-30] MEDS ORDERED: FENTANYL CITRATE INJ/PF 250 MCG/5 ML AMPULE ONE (08:28)
[2019-11-30] MEDS ORDERED: PROPOFOL INJ 200 MG/20 ML VIAL IV ONE (08:28)
[2019-11-30] MEDS ORDERED: MIDAZOLAM 2 MG/2 ML INJ ONE (08:28)
[2019-11-30] MEDS ORDERED: ONDANSETRON HCL INJ/PF 4 MG/2 ML SDV ONE (09:50)
[2019-11-30] MEDS ORDERED: NORMAL SALINE INJ/PF 0.9% 10 ML SDV ONE (09:50)
[2019-11-30] MEDS ORDERED: DEXAMETHASONE SOD PHOSPHATE INJ 4 MG/1 ML VIAL ONE (09:50)
[2019-11-30] MEDS ORDERED: LIDOCAINE 2% INJ-PF (20 MG/ML) 2 ML AMPUL ONE (09:50)
[2019-11-30] MEDS ORDERED: SUCCINYLCHOLINE CHLORIDE INJ 200 MG/10 ML VIAL ONE (09:50)
[2019-11-30] MEDS ORDERED: PROMETHAZINE HCL INJ 25 MG/1 ML VIAL IV PRN ×2 (09:54)
[2019-11-30] MEDS ORDERED: FENTANYL CITRATE INJ/PF 100 MCG/2 ML AMPUL IV PRN ×3 (09:54)
[2019-11-30] MEDS ORDERED: MEPERIDINE HCL/PF INJ 25 MG/1 ML DISP.SYRIN IV PRN (09:54)
[2019-11-30] MEDS ORDERED: DIPHENHYDRAMINE HCL 50 MG/ML VIAL IV PRN (09:54)
[2019-11-30] MEDS ORDERED: CEFAZOLIN INJ 1 GM VIAL ONE (11:28)
[2019-11-30] MEDS ORDERED: NORMAL SALINE 1000 ML 1,000 ML IV PRN (12:03)
--- NOTE | 2019-11-30 12:22 | Operative Report ---
Operative Report DATE OF SURGERY: 11/30/19 PREOPERATIVE DIAGNOSIS: 1. History of multicentric, poorly differentiated, tri ple negative right breast cancer with right axillary metastases. 2. Status post neoadjuvant chemotherapy. 3. Status post bilateral mastectomies, right axillary sentinel lymph node biopsy x2. 4. History of bilateral subpectoral saline implants POSTOPERATIVE DIAGNOSIS: Same with decidual tumor in the anterior chest wall flap and right axilla OPERATION: 1. Right chest wall skin, subcutaneous tissue, portion of pectoralis major muscle and implant capsule excision. 2. Removal of right subpectoral saline implant. 3. Complete axillary dissection. 4. Excision of left chest wall, subcutaneous tissue, and portion of implant capsule. 5. Explantation of left saline breast implant. 6. Drainage of right and left chest fuentes. 7. Extremely difficult modifier due to prolonged time, secondary to scarring, previous neoadjuvant chemotherapy. SURGEON: DEYANIRA MAST 1ST MARKETING CONTENT MANAGER: BALTA FIGUEROA ANESTHESIA: GA TISSUE REMOVED OR ALTERED: Right chest wall skin, subcutaneous tissue, portion of implant capsule and pectoralis major muscle; right axillary contents; left chest wall skin, subcutaneous tissue and portion of implant capsule COMPLICATIONS: None ESTIMATED BLOOD LOSS: 100 cc INTRAOPERATIVE FINDINGS: See below PROCEDURE: The patient was taken to the preop holding her to the main operating room and general anesthesia was induced. Arms were abducted, patient position to the right side of the operating table. Both sides of the chest, right axilla and left lateral chest wall all prepped and draped in sterile fashion Surgical plan and surgical timeout were conducted. Findings were significant for previous healed bilateral mastectomy scars, with the right scar having a inferior mid position vertical component. We marked on the skin bilateral chest wall ellipses for planned excision of the majority of the right wall scar, including the inferior vertical component to ensure removal of the positive anterior margin from the initial mastectomy, and on the left side, the majority of the previous mastectomy scar. Most aspects of both chest wall scars were left intact. We approached the right chest wall first. The ellipse was incised with a #10 blade. We raised a very short superior skin flap, and got right down to the tracting pectoralis major muscle. We now came right down to the implant capsule, open the capsule and took out the implant. We now resected a generous ellipse of subcutaneous tissue, anterior-inferior portion of the implant capsule. The intent was to ensure resection of the anterior inferior skin which had the known positive margin. Once this portion of tissue was excised, it was labeled with a short suture in the superior position, and a long suture in the lateral position and sent as right chest wall skin, capsule and portion of pectoralis muscle. It was sent for permanent analysis. We now proceeded with the complete axillary dissection. Of note the patient had a small transverse axillary scar from previous sentinel node biopsy. She had thickening and swelling in the axilla likely from postoperative changes, however we could not rule out growth of metastatic disease. We raised superior lateral and inferior skin flaps very carefully, encountering a significant amount of scar laterally, taking care not to buttonhole the skin. We establish the [place] retracting system and continued our dissection in a circumferential fashion. The dissection was extremely tedious due to previous scarring from a sentinel node biopsy, preoperative neoadjuvant chemotherapy, and ligament see involving the lymph nodes. Superiorly with to the level of dissection down to the pectoralis muscle, then down to the axillary vein. Medially we already had the pectoralis minor exposed. However there was significant scirrhous reaction around the pectoralis minor muscle neurovascular pedicle. This was preserved however. We continued the dissection along the lateral chest wall, identifying the long thoracic nerve. We developed the axillary contents including scar tissue and mobilized that away from the chest wall. Laterally we took the skin flap dissection down to the lateral border of the latissimus dorsi muscle. Axillary contents came off of the muscle fairly easily. Again working circumferentially we swept the axillary contents off of the biceps brachii muscle. At one point we encountered some skeletal muscle deeply adhesed to the axillary contents which in retrospect was a portion of latissimus dorsi muscle. Therefore a small 2 x 2 section of muscle went with the specimen. Axillary contents were pulled out of the by axilla using gentle traction, and sharp dissection. Getting the axillary nodes off of the chest wall up I was extremely challenging, however we were able to mobilize the tissue, and preserve the long thoracic nerve. Branching veins off the axillary vein were clipped. The dorsal complex was identified now and preserved throughout the dissection. Working circumferentially medially laterally and inferiorly, we continued to mobilize the tissue of interest centrally. Branches to the thoracodorsal complex were divided from the posterior axillary contents. The dorsal nerve remained intact, and the latissimus dorsi twitched when the nerve was pinched. Densely the contents were completely freed up, and oriented by Dr. taylor with a long suture in the lateral position and a short suture in the superior position. Specimen was sent for permanent analysis. We checked the axilla for any pedicle bleeding there was none. 2 large Moses drains were placed in the inferior skin flap, secured to the skin with 2-0 Prolene suture and positioned under the chest wall flap, and in the axilla. The chest wall was now closed without tension in a layered fashion with 2-0 Vicryl pexing the thinned out pectoralis muscle down to the serratus anterior fascia, then the skin closed with a running 2-0 Vicryl suture We now address the left chest wall. The ellipse previously marked to encompass two thirds of the previous scar was incised with a #10 blade. A skin and subcutaneous flap was then excised including a small portion of the anterior aspect of the plantar capsule. The rationale for excising the scar and a small portion of the tissue was to produce some degree of chest wall symmetry from a cosmetic and tissue redundancy standpoint. The implant was removed and sent to pathology labeled left breast implant. There was no evidence of infection, or hematoma. A large Moses drain was placed through the inferior skin flap, secured to the skin with 2-0 Prolene suture. The wound was now closed with multiple interrupted 2-0 Vicryl sutures pexing the pectoralis major down to the serratus anterior fascia, and the skin closed with a running 2-0 Vicryl suture. Skin glue was applied after ensuring all 3 drains were satisfactorily functioning when hooked up to bulb suction. Patient tolerated procedure well, extubated, and taken to recovery room in stable condition. The physician nurse assistant, Ms. Perez, provided assistance during this case by: Assisting during the axillary dissection, instillation of local anesthesia and closure of skin incisions.
[2019-11-30] MEDS ORDERED: ACETAMINOPHEN 1,000 MG/100 ML RTUPB IV ONE (12:26)
[2019-11-30] MEDS ORDERED: KETOROLAC TROMETHAMINE INJ/PF 30 MG/1 ML SDV ONE (12:26)
[2019-11-30] MEDS: KETOROLAC TROMETHAMINE INJ/PF 30 MG/1 ML SDV IV SCH ×3 (12:30→17:31)
[2019-11-30] MEDS: ACETAMINOPHEN 1,000 MG/100 ML RTUPB IV SCH (17:31)
[2019-11-30] MEDS ORDERED: ACETAMINOPHEN INJ/PF 1000 MG/100 ML SDV IV SCH (18:00)
[2019-11-30] MEDS: CEFAZOLIN 1 GM/D5W RTU 1 GM/50 ML RTUPB IV SCH (18:25)
[2019-12-01] MEDS: KETOROLAC TROMETHAMINE INJ/PF 30 MG/1 ML SDV IV SCH ×2 (00:18→05:44)
[2019-12-01] MEDS: ACETAMINOPHEN 1,000 MG/100 ML RTUPB IV SCH ×2 (00:18→05:44)
[2019-12-01] MEDS: CEFAZOLIN 1 GM/D5W RTU 1 GM/50 ML RTUPB IV SCH (02:39)
--- NOTE | 2019-12-01 08:31 | PDOC DISCHARGE SUMMARY ---
General - Admit/Disc Date/PCP Admission Date/Primary Care Provider: DMITRY PORTILLO MD Discharge Date: 12/01/19 - Discharge Diagnosis Final Diagnosis: Metastatic triple negative right breast cancer - Assessment Summary: Ms. Rod came in through ambulatory surgery with a planned procedure by Dr. Guillen, bilateral implant extraction and chest wall skin excision as well as right complete axillary dissection. She tolerated procedure well. No complications overnight. Flaps appear viable. Drains functions and education provided. She is ready for discharge today. Toradol 10 mg one pill by mouth every six hours as needed for pain, paper script provided by Dr. Guillen. May follow up at [facility] in 7-10 days. Call clinic with any questions/concerns. - Additional Information Resuscitation Status: Full Code Discharge Diet: As Tolerated Discharge Activity: Balance Activity w/Rest, Walk Frequently Referrals: DEYANIRA GUILLEN MD [ACTIVE STAFF] - 12/12/19 10:45 am Home Medications: No Home Medications 02/24/18 History of Present Illiness History of Present Illness: CHITRA ROD is a 54 year old female Physical Exam Vital Signs: Temp Pulse Resp BP Pulse Ox 97.9 F 76 16 100/60 99 11/30/19 23:46 11/30/19 23:46 11/30/19 23:46 11/30/19 23:46 11/30/19 23:46 Intake & Output 11/30/19 12/01/19 12/02/19 06:59 06:59 06:59 Intake Total 2840 Output Total 595 Balance 2245 Weight 56.7 kg 56.7 kg Results Laboratory Results: WBC 2.8 10^3/uL (4.0-10.5) L 11/30/19 07:31 RBC 4.01 10^6/uL (3.72-5.28) 11/30/19 07:31 Hgb 12.5 g/dL (12.0-15.5) 11/30/19 07:31 Hct 36.5 % (36.0-47.0) 11/30/19 07:31 MCV 91 fl (80-97) 11/30/19 07:31 MCH 31.1 pg (27.0-33.4) 11/30/19 07:31 MCHC 34.2 g/dL (32.0-36.0) 11/30/19 07: RDW 13.8 % (11.5-14.0) 11/30/19 07: Plt Count 185 10^3/uL (150-450) 11/30/19 07: Lymph % (Auto) 53.1 % (13-45) H 11/30/19 07: Gordon % (Auto) 9.7 % (3-13) 11/30/19 07: Eos % (Auto) 4.3 % (0-6) 11/30/19 07: Baso % (Auto) 1.4 % (0-2) 11/30/19 07: Absolute Neuts (auto) 0.9 10^3/uL (1.7-8.2) L 11/30/19 07: Absolute Lymphs (auto) 1.5 10^3/uL (0.5-4.7) 11/30/19 07: Absolute Monos (auto) 0.3 10^3/uL (0.1-1.4) 11/30/19 07: Absolute Eos (auto) 0.1 10^3/uL (0.0-0.6) 11/30/19 07: Absolute Basos (auto) 0.0 10^3/uL (0.0-0.2) 11/30/19 07: Seg Neutrophils % 31.5 % (42-78) L 11/30/19 07:31 COVID-19 Source NASOPHARYNGEAL 11/25/19 10:05 COVID-19 (TANIA) NOT DETECTED 11/25/19 10:05
[2019-12-01 08:42] VITALS: BP 94/53
== END 2019-12-01 09:25 | disposition home or self-care (01) ==
LOC: OROUT 06:47 → 4N 12:11 → OROUT 12:11 → 4N 13:11
PROVIDERS: ADMIT Surgery; ATTEND Surgery
PROC: 0HPT0JZ Removal of Synthetic Substitute from Right Breast, Open Approach (ICD-10-PCS; 2019-11-30)
PROC: 07T50ZZ Resection of Right Axillary Lymphatic, Open Approach (ICD-10-PCS; 2019-11-30)
PROC: 0HPU0JZ Removal of Synthetic Substitute from Left Breast, Open Approach (ICD-10-PCS; principal; 2019-11-30 09:00)
DX: C50.811 Malignant neoplasm of overlapping sites of right female breast (principal); Z45.811 Encounter for adjustment or removal of right breast implant; Z20.828 Contact with and (suspected) exposure to other viral communicable diseases; Z80.3 Family history of malignant neoplasm of breast
CPT/HCPCS: 19330 ×2; 38745; 36415; 85025; 87635; 88300 ×2; 88305 ×2; 94799; G0378 ×2; J2250; J0690 ×3; J1100; J3010; J1885 ×2; J3490 ×2; J0330; J2405; J7030; J2704; J0131 ×2; C9803; 1610

== ENCOUNTER → 2020-01-04 | Outpatient (CLI) | payer BC ==
--- NOTE | 2020-01-04 10:32 | RADIOLOGY REPORT (SQ) ---
EXAM DESCRIPTION: CT CHEST WITH IMAGES COMPLETED DATE/TIME: 01/04/2020 8:58 am REASON FOR STUDY: C50.211 MALIG NEOPLM OF UPPER-INNER QUADRANT OF RIGHT FEMALE BREAST C50.211 MALIG NEOPLM OF UPPER-INNER QUADRANT OF RIGHT FEMALE COMPARISON: CT of the abdomen and pelvis with contrast from 05/03/2019. TECHNIQUE: CT scan of the chest performed using helical scanning technique with dynamic intravenous contrast injection. Images reviewed with lung, soft tissue and bone windows. Reconstructed coronal and sagittal MPR and MIP images reviewed. All images stored on PACS. All CT scanners at this facility use dose modulation, iterative reconstruction, and/or weight based d osing when appropriate to reduce radiation dose to as low as reasonably achievable (ALARA). [facility]: Dose Right [facility]: CareDose [facility]: Dose Right [facility]: Teradose 4D [facility]: [employer] CONTRAST TYPE AND DOSE: 63 mL Omnipaque 350- low osmolar. RENAL FUNCTION: Creatinine 0.6 milligrams/deciliter. LIMITATIONS: None. FINDINGS: LUNGS AND PLEURA: The trachea main bronchi are patent. There is no consolidation, ground- glass opacification, pleural effusion or pneumothorax. PULMONARY NODULES: None. HILAR AND MEDIASTINAL STRUCTURES: No adenopathy or mass. HEART AND VASCULAR STRUCTURES: Standard 3 vessel arch. There is no thoracic aortic dissection or ane urysm. There is no cardiomegaly or pericardial effusion. HARDWARE: The tip of the left IJ approach single-lumen port terminates within the SVC. UPPER ABDOMEN: Refer to the separate report of the CT of the abdomen. THYROID AND OTHER SOFT TISSUES: Status post bilateral mastectomies and right axillary lymph node diss ection ; the amorphous soft tissue in the right axilla (around the surgical clips) is nonspecific and could represent granulation tissue - attention on follow-up CTs is recommended. There is mild cutan eous thickening and subcutaneous fat stranding in the mastectomy surgical sites. BONES: No cute fracture osseous lesion. OTHER: No other finding. IMPRESSION: Status post bilateral mastectomies and right axillary lymph node dissection ; the amorph ous soft tissue in the right axilla (around the surgical clips) is nonspecific and could represent gr anulation tissue - attention on follow-up CTs is recommended. There is no evidence of metastatic dis ease. TECHNICAL DOCUMENTATION: JOB ID: [id number] Quality ID # 436: Final reports with documentation of one or more dose reduction techniques (e.g., Au tomated exposure control, adjustment of the mA and/or kV according to patient size, use of iterative reconstruction technique) 2010 [employer]- All Rights Reserved Reading location - IP/workstation name: [email or web address]
--- NOTE | 2020-01-04 13:40 | RADIOLOGY REPORT (SQ) ---
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 TECHNIQUE: CT scan of the abdomen and pelvis performed using helical scanning technique with dynamic intravenous contrast injection. No oral contrast. Images reviewed with lung, soft tissue, and bone windows. Reconstructed coronal and sagittal MPR images reviewed. Delayed images for evaluation of the urinary system also acquired. All images stored on PACS. All CT scanners at this facility use dose modulation, iterative reconstruction, and/or weight based d osing when appropriate to reduce radiation dose to as low as reasonably achievable (ALARA). [facility]: Dose Right [facility]: CareDose [facility]: Dose Right [facility]: Teradose 4D [facility]: [place] CONTRAST TYPE AND DOSE: Contrast/concentration: Isovue 350.00 mmol/ml; Total Contrast Delivered: 63. 0 ml; Total Saline Delivered: 65.0 ml RENAL FUNCTION: Creatinine 0.9 milligrams/deciliter. RADIATION DOSE: CT Rad equipment meets quality standard of care and radiation dose reduction techniq ues were employed. CTDIvol: 4.4 - 4.6 mGy. DLP: 616 mGy-cm. LIMITATIONS: None. FINDINGS: LOWER CHEST: Refer to the separate report of the CT of the chest. LIVER: The morphology of the liver is noncirrhotic. The portal veins are patent. There is no hepati c mass. SPLEEN: No splenomegaly or splenic mass. PANCREAS: No acute gross abnormality of the pancreas. GALLBLADDER: No abnormality that is apparent on CT. ADRENAL GLANDS: No mass or asymmetry. RIGHT KIDNEY AND URETER: No solid mass, hydronephrosis, nephrolithiasis, hydroureter or ureterolithia sis. LEFT KIDNEY AND URETER: No solid mass, hydronephrosis, nephrolithiasis, hydroureter or ureterolithias is. AORTA AND VESSELS: No aneurysm of the abdominal aorta. The left gonadal vein is enlarged and there i s re- demonstration of varicose vessels in the left adnexum. RETROPERITONEUM: No retroperitoneal adenopathy, hemorrhage or mass. BOWEL AND PERITONEAL CAVITY: No bowel obstruction, bowel wall thickening or pericolonic/ perienteric inflammation. No mesenteric adenopathy, free intraperitoneal fluid or mesenteric/ omental inflammati on. APPENDIX: Unable to identify the appendix. There is no pericecal inflammation. PELVIS: The uterus is surgically absent. The urinary bladder is normal in appearance. ABDOMINAL WALL: No mass or hernia. BONES: No fracture or osseous lesion. OTHER: No other finding. IMPRESSION: No evidence of metastatic disease. TECHNICAL DOCUMENTATION: JOB ID: [id number] Quality ID # 436: Final reports with documentation of one or more dose reduction techniques (e.g., Au tomated exposure control, adjustment of the mA and/or kV according to patient size, use of iterative reconstruction technique) 2010 [employer]- All Rights Reserved Reading location - IP/workstation name: [email or web address]
--- NOTE | 2020-01-04 14:16 | RADIOLOGY REPORT (SQ) ---
EXAM DESCRIPTION: NM WHOLE BODY BONE SCAN IMAGES COMPLETED DATE/TIME: 01/04/2020 1:18 pm REASON FOR STUDY: C50.211 MALIG NEOPLM OF UPPER-INNER QUADRANT OF RIGHT FEMALE BREAST C50.211 MALIG NEOPLM OF UPPER-INNER QUADRANT OF RIGHT FEMALE COMPARISON: 05/03/2019 RADIONUCLIDE AND DOSE: 2 millicuries Tc99m MDP. The route of agent administration: Intravenous. ADDITIONAL DRUGS AND DOSES: None. TECHNIQUE: Routine delayed images at 3 hours post radionuclide injection acquired of the bony skelet on including anterior and posterior whole-body projections and additional focused images as needed. LIMITATIONS: None. FINDINGS: BONES: Mild degenerative uptake in the lower cervical spine on the left. There is no evid ence of metastatic disease. KIDNEYS: Symmetric excretion without obstruction. OTHER: No other significant finding. IMPRESSION: There is no evidence of metastatic disease to bone. COMMENT: Quality measure 147: Current bone scan is compared with any available plain radiographs, p rior bone scans, and CT/MRI. TECHNICAL DOCUMENTATION: JOB ID: [id number] 2010 [employer]- All Rights Reserved Reading location - IP/workstation name: [email or web address]
== END ==
LOC: RAD 08:25
PROVIDERS: ATTEND Internal Medicine
DX: C50.211 Malignant neoplasm of upper-inner quadrant of right female breast (principal)
CPT/HCPCS: 82565; 78306; 71260; 74177; A9503; Q9969

== ENCOUNTER → 2020-04-16 | Outpatient (CLI) | payer BC ==
--- NOTE | 2020-04-16 10:07 | RADIOLOGY REPORT (SQ) ---
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 TECHNIQUE: CT scan of the chest performed using helical scanning technique with dynamic intravenous contrast injection. Images reviewed with lung, soft tissue and bone windows. Reconstructed coronal and sagittal MPR and MIP images reviewed. All images stored on PACS. All CT scanners at this facility use dose modulation, iterative reconstruction, and/or weight based d osing when appropriate to reduce radiation dose to as low as reasonably achievable (ALARA). [facility]: Dose Right [facility]: CareDose [facility]: Dose Right [facility]: Teradose 4D [facility]: [employer] CONTRAST TYPE AND DOSE: contrast/concentration: Isovue 350.00 mmol/ml; Total Contrast Delivered: 80. 0 ml; Total Saline Delivered: 44.0 ml RENAL FUNCTION: Creatinine 0.7 milligrams/deciliter. RADIATION DOSE: CT Rad equipment meets quality standard of care and radiation dose reduction techniq ues were employed. CTDIvol: 3.9 mGy. DLP: 159 mGy-cm. LIMITATIONS: None. FINDINGS: LUNGS AND PLEURA: The trachea and main bronchi are patent. Since the prior CT, the patien t has developed multifocal irregular nodular areas of ground-glass attenuation in a peribronchial dis tribution in the right upper lobe that measure up to 16 x 13 mm (for reference refer to images 28, 40 , 41, 46 and 48 of series 4). There is no lobar consolidation, pleural effusion or pneumothorax. HILAR AND MEDIASTINAL STRUCTURES: No adenopathy or mass. HEART AND VASCULAR STRUCTURES: No aneurysm or dissection of the thoracic aorta. No cardiomegaly or p ericardial effusion. HARDWARE: The tip of the left IJ central venous catheter terminates within the SVC. UPPER ABDOMEN: No acute abnormality. 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 The cutaneous thickening and subcutaneous fat stranding in the left mastectomy surgical site has decreas ed ; the similar findings on the contralateral side are unchanged. There is no evidence of local rec urrence. BONES: No fracture or osseous lesion. OTHER: No other findings. IMPRESSION: New multifocal irregular nodular areas of ground-glass attenuation in a peribronchial di stribution in the right upper lobe that measure up to 16 x 13 mm. These opacities are nonspecific an d could represent an infectious, inflammatory or metastatic process. Correlation with clinical findi ngs and a short-term follow-up CT (3-6 months) is recommended. TECHNICAL DOCUMENTATION: JOB ID: [id number] Quality ID # 436: Final reports with documentation of one or more dose reduction techniques (e.g., Au tomated exposure control, adjustment of the mA and/or kV according to patient size, use of iterative reconstruction technique) 2010 [employer]- All Rights Reserved Reading location - IP/workstation name: [email or web address]
== END ==
LOC: RAD 08:54
PROVIDERS: ATTEND Radiology Radiation Oncology
DX: C50.811 Malignant neoplasm of overlapping sites of right female breast (principal)
CPT/HCPCS: 71260; 82565

== ENCOUNTER → 2020-05-08 | Outpatient (CLI) | payer BC ==
--- NOTE | 2020-05-08 13:51 | RADIOLOGY REPORT (SQ) ---
EXAM DESCRIPTION: INJECT VENOUS ACCESS DEVICE IMAGES COMPLETED DATE/TIME: 05/08/2020 1:28 pm REASON FOR STUDY: (V95.828)PRESENCE OF OTHER VASCULAR IMPLANTS AND GRAFTS Z95.828 PRESENCE OF OTHER VASCULAR IMPLANTS AND GRAFTS COMPARISON: None. FLUOROSCOPY TIME: 0.3 minutes 3 cine clips saved to PACS. TECHNIQUE: Fluoroscopic guided injection of non-ionic contrast through an existing port a catheter. LIMITATIONS: None. PROCEDURE: The patient was brought into the fluoroscopic room and placed supine on the table. The pa tient's port access site was prepped and draped in a sterile fashion. The port was the accessed by [facility] radiological nurse. The catheter was then injected with 20 ml of non-ionic contrast. A series of fl uoroscopic images demonstrate no extravasation from the port well or any evidence of fibrin sheath at the end of the catheter. IMPRESSION: PATENT PORT A CATHETER WITHOUT ANY EVIDENCE OF EXTRAVASATION OR FIBRIN SHEATH. COMMENT: Quality ID 145: Final reports for procedures using fluoroscopy that document radiation exp osure indices, or exposure time and number of fluorographic images (if radiation exposure indices are not available) TECHNICAL DOCUMENTATION: JOB ID: [id number] 2010 [employer]- All Rights Reserved Reading location - IP/workstation name: [email or web address]
== END ==
LOC: RAD 12:50
PROVIDERS: ATTEND Internal Medicine
DX: Z09 Encounter for follow-up examination after completed treatment for conditions other than malignant neoplasm (principal); Z95.828 Presence of other vascular implants and grafts
CPT/HCPCS: 36598; J1642